=== PATIENT | female | born 1990 | race African-American/Black ===

== ENCOUNTER 2016-12-14 22:57 | Emergency (ER) | payer OTHER ==
[~2016-12-14] VITALS: Ht 157.5 cm; Wt 90.7 kg
--- NOTE | ~2016-12-14 | EKG ---
[place] [address] [facility] [place] [address] ELECTROCARDIOGRAM REPORT Name: MAHIN MARTINS [facility]: [facility] [id number] Admission: 12/14/16 Attend Phys: Discharge: 12/15/16 Date of : [birth year] Report #: [id number] THIS REPORT FOR: //name// [facility] ED Test Date: 2016-12-14 Test Time: 23:38:02 Pat Name: MAHIN MARTINS Department: Room: Gender: F Manager Reading: [id number] : 1990 Requested By: Vinicio Salcido Order Number: [id number] MD: Luis Fernando Love Measurements Intervals [place] Rate: 82 P: 46 DE: 153 QRS: 28 QRSD: 86 T: 32 QT: 392 QTc: 458 Interpretive Statements Sinus rhythm No significant abnormality No previous ECG available for comparison Electronically Signed On 12-15-2016 7:28:15 CDT by Luis Fernando Love [email or web address] <ELECTRONICALLY SIGNED> By: Luis Fernando Love MD, [facility] 12/15/16 0728 [id number] Luis Fernando Love MD, FACC /EPI
[~2016-12-14 22:57] MED LIST: ACETAMINOPHEN-120 ML PO; DENIES ANY MEDS; POTASSIUM20 PO
[2016-12-14] MEDS ORDERED: HYDROCODONE-AP1 EAC6 PO (23:18)
[2016-12-14] MEDS ORDERED: COUMADIN 5 MG TA5 M1 PO (23:18)
[2016-12-14] MEDS ORDERED: FLEXERIL PO (23:18)
[2016-12-14] MEDS ORDERED: VENTOLIN HFA 1818 GM INH (23:18)
[2016-12-14 23:53] LABS: ABSOLUTE NEUTROPHILS 7.2 thou/uL (1.4-8.2); BASOPHILS 0.9 % (0.0-2.0); HEMATOCRIT 27.6 % (37.0-47.0); HEMOGLOBIN 8.7 gm/dL (12.0-15.0); LYMPHOCYTES 21.1 % (24.0-44.0); MCHC 31.5 g/dL (28.0-37.0); MCV 73.1 fL (80.0-100.0); MONOCYTES 8.8 % (1.0-8.0); PLATELET COUNT 249 thou/uL (150-400); POLYS 68.2 % (36.0-66.0); RBC 3.78 mil/uL (4.20-5.00); RDW 18.1 % (10.5-14.5); WBC 10.6 thou/uL (4.0-11.0)
[2016-12-14 23:55] LABS: MANUAL DIFF NO
[2016-12-15 00:04] LABS: ANION GAP 11 mmol/L (7-16); BUN 15 mg/dL (7-18); CALCIUM 8.5 mg/dL (8.5-10.1); CHLORIDE 105 mmol/L (98-107); CO2 26 mmol/L (21-32); CREATININE 0.8 mg/dL (0.6-1.0); GLUCOSE 79 mg/dL (74-106); POTASSIUM 3.5 mmol/L (3.5-5.1); SODIUM 142 mmol/L (136-145)
[2016-12-15 00:16] LABS: NT-PRO BRAIN NAT PEPTIDE 35 pg/mL (<300); TROPONIN-I < 0.04 ng/mL (<0.04-0.07)
[2016-12-15] MEDS ORDERED: CLEOCIN HCL300 MG PO (01:29)
[2016-12-15] MEDS ORDERED: TIZANIDINE HCL4 MG PO (01:51)
[2016-12-15 02:03] VITALS: BP 124/68
== END 2016-12-15 02:00 | disposition home or self-care (01) ==
LOC: ER 22:57
PROVIDERS: Nurse Practitioner
DX: R51 Headache (principal); M54.2 Cervicalgia; L02.411 Cutaneous abscess of right axilla; Z98.890 Other specified postprocedural states